=== PATIENT | female | born 1995 | race Caucasian/White ===

== ENCOUNTER 2021-01-17 23:36 | Emergency (ER) | payer OTHER ==
[~2021-01-17 23:36] MED LIST: AMOXICILLIN500 MG PO; PRENATAL FORMU1 EACH PO
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
== END 2021-01-18 00:29 | disposition home or self-care (01) ==
LOC: FER 23:36
DX: O99.891 Other specified diseases and conditions complicating pregnancy (principal); R10.9 Unspecified abdominal pain; O99.333 Smoking (tobacco) complicating pregnancy, third trimester; F17.290 Nicotine dependence, other tobacco product, uncomplicated; V49.40XA Driver injured in collision with unspecified motor vehicles in traffic accident, initial encounter; Y92.410 Unspecified street and highway as the place of occurrence of the external cause; Z3A.31 31 weeks gestation of pregnancy
CPT/HCPCS: 99283